=== PATIENT | female | born 1995 | race American Indian/Alaskan Native ===

== ENCOUNTER 2021-11-08 23:51 | Emergency (ER) | payer MEDICAID ==
[2021-11-09 01:38] VITALS: BP 139/77
--- NOTE | 2021-11-09 10:04 | Emergency Department Report ---
ED ENT HPI - General Chief complaint: Dental/Oral Stated complaint: LEFT SIDE JAW SWOLLEN/TOOTHACHE Time Seen by Provider: 11/09/21 10:00 Source: patient Mode of arrival: Ambulatory Limitations: No Limitations - History of Present Illness Initial comments: This is a 25-year-old -[place] female who presents to the emergency room with left sided facial swelling and dental pain for a couple of days. Patient reports history of dental pain to left lower tooth. Patient states she tried to get into see a dentist but unsuccessful. States pain is unbearable but when she noticed facial swelling to the left side she decided to come in for further evaluation. She denies drooling, vocal changes, and difficulty swallowing. MD complaint: tooth pain Location: tooth # (18) Severity scale (0 -10): 10 Quality: stabbing, aching, constant Consistency: constant Improves with: none Worsens with: eating - Related Data Previous Rx's Medication Instructions Recorded Last Taken Type Amoxicillin/K Clav Tab [Augmentin 1 tab PO Q12HR #14 tab 11/09/21 Unknown Rx 875 mg] Chlorhexidine Mouthwash [Peridex] 15 ml MM BID #1 bottle 11/09/21 Unknown Rx traMADoL [Ultram 50 MG tab] 50 mg PO Q4HR PRN #12 tablet 11/09/21 Unknown Rx Allergies Allergy/AdvReac Type Severity Reaction Status Date / Time No Known Allergies Allergy Unverified 11/09/21 10:12 ED Dental HPI - General Chief complaint: Dental/Oral Stated complaint: LEFT SIDE JAW SWOLLEN/TOOTHACHE Time Seen by Provider: 11/09/21 10:00 Source: patient Mode of arrival: Ambulatory Limitations: No Limitations - Related Data Previous Rx's Medication Instructions Recorded Last Taken Type Amoxicillin/K Clav Tab [Augmentin 1 tab PO Q12HR #14 tab 11/09/21 Unknown Rx 875 mg] Chlorhexidine Mouthwash [Peridex] 15 ml MM BID #1 bottle 11/09/21 Unknown Rx traMADoL [Ultram 50 MG tab] 50 mg PO Q4HR PRN #12 tablet 11/09/21 Unknown Rx Allergies Allergy/AdvReac Type Severity Reaction Status Date / Time No Known Allergies Allergy Unverified 11/09/21 10:12 ED Review of Systems ROS: Stated complaint: LEFT SIDE JAW SWOLLEN/TOOTHACHE Other details as noted in HPI Constitutional: denies: chills, fever ENT: as per HPI, dental pain Respiratory: denies: cough, shortness of breath, wheezing Cardiovascular: denies: chest pain, palpitations Skin: denies: rash, lesions Neurological: denies: headache, weakness, paresthesias Psychiatric: denies: anxiety, depression ED Past Medical Hx - Medications Home Medications: Home Medications Medication Instructions Recorded Confirmed Last Taken Type Amoxicillin/K Clav Tab [Augmentin 1 tab PO Q12HR #14 tab 11/09/21 Unknown Rx 875 mg] Chlorhexidine Mouthwash [Peridex] 15 ml MM BID #1 bottle 11/09/21 Unknown Rx traMADoL [Ultram 50 MG tab] 50 mg PO Q4HR PRN #12 tablet 11/09/21 Unknown Rx ED Physical Exam - General Limitations: No Limitations General appearance: alert, in no apparent distress - Head Head exam: Present: atraumatic, normocephalic - ENT ENT exam: Present: mucous membranes moist - Expanded ENT Exam Expanded Mouth exam: Present: normal external inspection, tongue normal, other (Left- sided mandible swelling, no erythema, sensation intact). Absent: drooling, trismus, muffled voice, tongue elevation Teeth exam: Present: dental caries, dental tenderness # (18), gingival enlargement (Surrounding #18) 1 - Dental Tenderness, Other Throat exam: Positive: normal inspection - Neck Neck exam: Present: normal inspection - Respiratory Respiratory exam: Present: normal lung sounds bilaterally. Absent: respiratory distress - Cardiovascular Cardiovascular Exam: Present: regular rate, normal rhythm. Absent: systolic murmur, diastolic murmur, rubs, gallop - Neurological Exam Neurological exam: Present: alert, oriented X3, normal gait - Psychiatric Psychiatric exam: Present: normal affect, normal mood - Skin Skin exam: Present: warm, dry, intact, normal color. Absent: rash ED Course Vital Signs 11/09/21 00:54 Temperature 98.6 F Pulse Rate 92 H Respiratory 18 Rate Blood Pressure 139/77 O2 Sat by Pulse 98 Oximetry ED Medical Decision Making - Medical Decision Making This is a 25-year-old female that presents with #18 dental carry and left side facial swelling for 2-3 days. Patient is stable and was examined by me. Susceptible of dental caries and gingivitis. Start tramadol, Augmentin, and chlorhexidine mouthwash. Discussed plan with patient. She agreed with ER plan. Discharged home stable. Follow up with dentist. Critical care attestation.: If time is entered above; I have spent that time in minutes in the direct care of this critically ill patient, excluding procedure time. ED Disposition Clinical Impression: Dental caries, Gingivitis Disposition: 01 HOME / SELF CARE / HOMELESS Is pt being admited?: No Condition: Stable Instructions: Preventive Dental Care, Adult Prescriptions: Amoxicillin/K Clav Tab [Augmentin 875 mg] 1 tab PO Q12HR #14 tab Chlorhexidine Mouthwash [Peridex] 15 ml MM BID #1 bottle traMADoL [Ultram 50 MG tab] 50 mg PO Q4HR PRN #12 tablet PRN Reason: Pain Referrals: [facility] [Outside] - 3-5 Days [facility] [Outside] - 3-5 Days Forms: Work/School Release Form(ED) Time of Disposition: 10:09
== END 2021-11-09 10:15 | disposition home or self-care (01) ==
LOC: ED 23:51
DX: K02.9 Dental caries, unspecified (principal); K05.10 Chronic gingivitis, plaque induced
CPT/HCPCS: 99282